=== PATIENT | male | born 1990 | race Caucasian/White ===

== ENCOUNTER 2021-07-24 10:49 | Outpatient (REF) | payer OTHER, SELFPAY ==
[2021-07-24 13:55] LABS: MANUAL DIFF FLAG NO
[2021-07-24 14:03] LABS: Basophils Percent Auto 0.5 % (0-2); Eosinophils Absolute Auto 0.1 X10*3/uL (0.0-0.4); Eosinophils Percent Auto 1.3 % (0-4); Hematocrit 42.1 % (42.0-52.0); Hemoglobin 14.3 g/dl (14.0-18.0); Imm Gran Abs Auto 0.02 X10*3/uL (0.00-0.03); Imm Gran Pct Auto 0.3 % (0.0-0.4); Lymphocytes Absolute Auto 2.5 X10*3/uL (1.2-4.9); Lymphocytes Percent Auto 39.9 % (20-40); Mean Corpuscular Hemoglobin 29.8 pg (27.0-33.0); Mean Corpuscular Volume 87.7 fL (80.0-98.0); Mean Platelet Volume 12.1 fL (9.4-12.4); Monocytes Absolute Auto 0.6 X10*3/uL (0.1-1.2); Monocytes Percent Auto 10.2 % (2-11); Neutrophils Percent Auto 47.8 % (45-73); Red Cell Distribution Width 12.1 % (11.0-16.0); White Blood Count 6.2 X10*3/uL (4.8-10.8)
[2021-07-24 14:22] LABS: Platelet Count 86 X10*3/uL (160-400)
[2021-07-24 14:42] LABS: Alanine Aminotransferase 76 U/L (0-40); Albumin Level 4.4 g/dL (3.5-5.0); Alkaline Phosphatase 35 U/L (39-117); Anion Gap 13 (12-20); Aspartate Amino Transferase 34 U/L (5-37); Bilirubin Total 0.4 mg/dL (0.0-1.0); Blood Urea Nitrogen 22 mg/dL (9-16); Calcium 9.7 mg/dL (8.4-10.2); Carbon Dioxide 24 mmol/L (22-29); Chloride 106 mmol/L (96-108); Cholesterol 218 mg/dL; Estimated Glomerular Filt Rate > 60; Glucose Fasting 85 mg/dL (60-99); HDL Cholesterol 39 mg/dL; LDL Cholesterol Calculated 123 mg/dl; Potassium 4.4 mmol/L (3.3-5.1); Sodium 139 mmol/L (135-145); Total Protein 7.2 g/dL (6.5-8.0); Triglycerides 282 mg/dL
[2021-07-24 14:56] LABS: Vitamin D 25-OH Total 22.8 ng/mL (>30)
== END 2021-07-24 10:50 | disposition home or self-care (01) ==
LOC: HO.MANLDS 10:49
PROVIDERS: PCP Internal Medicine; Visit Provider Internal Medicine
DX: Z00.00 Encounter for general adult medical examination without abnormal findings (principal)
CPT/HCPCS: 36415; 80053; 80061; 82306; 85025

== ENCOUNTER 2022-03-29 04:00 | Observation (INO) | payer OTHER, SELFPAY ==
--- NOTE | 2022-03-29 | ECG_ITS ---
Test Reason : LOW HR Blood Pressure : / mmHG Vent. Rate : 037 BPM Atrial Rate : 037 BPM P-R Int : 148 ms QRS Dur : 094 ms QT Int : 460 ms P-R-T Axes : -01 033 030 degrees QTc Int : 361 ms Marked sinus bradycardia Abnormal ECG No previous ECGs available Referred By: Generic ED Physician Electronically Signed By:ABBEY GOMES
--- NOTE | ~2022-03-29 | CT_ITS ---
EXAMINATION: CT ABDOMEN AND PELVIS WITHOUT CONTRAST CLINICAL INFORMATION: Sudden onset epigastric pain. COMPARISON: None TECHNIQUE: Multidetector volumetric imaging was performed from the superior aspect of the liver through the pubic symphysis. Sagittal and coronal reformatted images were obtained on the technologist's workstation. This CT examination was performed using dose optimization techniques as appropriate, variously including the following: *Automated exposure control *Adjustment of mA and/or kV according to patient size (this includes techniques or standardized protocols for targeted exams where dose is matched to indication/reason for exam; i.e. extremities or head) *Use of iterative reconstruction technique DLP: 860 mGy-cm FINDINGS: LUNG BASES: There is a pneumatocele within the right lower lobe, partially imaged. LIVER, GALLBLADDER, AND BILIARY TREE: Liver normal in size, contour and morphology. Diffuse hepatic steatosis. No focal liver lesions. No intra or extrahepatic biliary dilatation. Gallbladder unremarkable. PANCREAS: Unremarkable. SPLEEN: Unremarkable. ADRENAL GLANDS: Unremarkable. KIDNEYS AND URETERS: The kidneys are normal in size, shape, and attenuation. No hydronephrosis, hydroureter, or calculi seen. No perinephric stranding. BLADDER: Unremarkable. GASTROINTESTINAL TRACT: The appendix is dilated and fluid-filled measuring up to 1.1 cm in diameter with trace adjacent fat stranding. No evidence of perforation or abscess formation. Remainder of the gastrointestinal tract is unremarkable. ABDOMINAL WALL: No significant hernia is appreciated. LYMPH NODES: Normal. VASCULAR: Unremarkable. PELVIC VISCERA: Unremarkable. OSSEOUS STRUCTURES: Unremarkable. CT/CT abdomen pelvis wo con IMPRESSION: * Findings are most compatible with early, acute uncomplicated appendicitis. * No additional potentially acute findings within the abdomen or pelvis to explain the patient's symptomatology. * Hepatic steatosis.
[2022-03-29 04:09] VITALS: BP 130/78; PULSE 36; RESP 20; TEMP 35.8; O2SAT 98; BMI 33.6
--- NOTE | 2022-03-29 04:35 | ED_ITS ---
HPI - Abdominal Pain General Chief Complaint: Abdominal Pain Stated Complaint: abd pain, cp? Time Seen by Provider: 03/29/22 04:30 Source: patient and family (, Angi) Mode of arrival: ambulatory Limitations: no limitations History of Present Illness HPI narrative: 31-year-old male who presents emergency department for evaluation of abdominal. Patient states that he woke up from sleep at 02:00 hours with a sudden onset epigastric abdominal pain. States that the pain is a constant, sharp pain which was 7/10 at onset and is currently 8/10. The patient had associated nausea and 1 episode of vomiting. Patient felt lightheaded dizzy and according to his his skin was very clammy. Patient states that he does get gas pain but he has never had pain that is been this severe before. He denied chest pain. He states he does feel short of breath. He denied frequency, urgency or dysuria. He denied any dark tarry stools bloody stools. MD elicited complaint: abdominal pain Onset (ago): hour(s) (2) Pain Consistency: constant Location: epigastric Severity: severe Pain scale (0-10): 8 Quality: sharp Radiation: none Migration to: no migration Exacerbating factors: nothing Relieving factors: nothing Associated symptoms: nausea, vomiting, chills and other (Diaphoresis) Related Data Allergies Allergy/AdvReac Type Severity Reaction Status Date / Time No Known Allergies Allergy Verified 03/29/22 04:15 Review of Systems Review of Systems Yes all other systems are reviewed and are negative [facility] Past Medical History [facility] Narrative: Past will history: ADD. Past surgical history: None. Social history: He is , his Angi is here in the emergency department with him. He denies tobacco use. He states that he occasionally drinks alcohol but does not drink any alcohol recently. Denies drug use. Social History Social History Advance Directives: No Advance Directives Information Provided: Yes Physical Exam ED Vital Signs: Vital Signs - 24 hr 03/29/22 04:09 03/29/22 05:48 Temperature 96.5 F L Pulse Rate 36 L 37 L Respiratory Rate 20 15 Blood Pressure 130/78 133/85 Pulse Oximetry 98 94 Oxygen Delivery Method Room Air Room Air BMI result Body Mass Index 33.6 Const Other: Awake, alert, male patient, pale, diaphoretic, answers all questions appropriately HENMT Head: Yes normal to inspection, Yes normocephalic and Yes atraumatic Ears: external ears normal General nose exam: Normal external nose present Face and sinus: Yes normal facial exam Mouth: Normal oral and palatal mucosa present Throat: Yes posterior oropharynx normal Eyes General: appearance normal, both eyes and all related structures Pupils: Equal, round and reactive pupils present Neck Neck: Yes normal visual inspection, Yes no lymphadenopathy, Yes trachea midline and Yes supple Chest Chest palpation & inspection: normal inspection of the chest and normal palpation of entire chest wall Resp Effort & Inspection: normal respiratory effort and able to speak in complete sentences Auscultation: clear to auscultation bilaterally Cardio Rate: regular rate Rhythm: regular rhythm Heart sounds: S1 normal heart sound present, S2 normal heart sound present and no murmurs GI Inspection: Yes normal to inspection Palpation (GI): Soft to palpation, Tenderness to palpation present (GI) in the epigastrum (Moderate) and no guarding Auscultation: normal bowel sounds General: Yes no CVA tenderness Back/Spine/Pelvis Back: no CVA tenderness Skin General skin exam: no rashes or lesions noted Neuro Cranial nerves: Yes CN's II-XII intact bilaterally and Yes Equal, round and reactive pupils present Cognition (Neuro): normal cognition Motor exam (neuro): 5/5 motor strength present throughout Extrem General: Yes normal to inspection Psych Appearance: grossly normal Speech and movement: Normal speech and movement present Affect: normal affect Attitude: cooperative Thought process: Normal thought process present Thought content: Normal thought content present Course Course Course Narrative: 31-year-old male who presents emergency department for evaluation of sudden onset of epigastric abdominal pain at 02:00 hours, the pain was severe at onset and is currently 8/10. Physical examination revealed bradycardia with a pulse of 36, epigastric tenderness otherwise unremarkable. Differential includes was not limited to myocardial infarction, renal colic, biliary colic, perforation, pancreatitis. I ordered a CBC, CMP, PT/INR, PTT, lactate, lipase, troponin. EKG and CT scan of the abdomen pelvis without IV contrast was obtained. Patient was ordered to get normal saline IV x2 L , morphine 4 mg IV and Zofran 4 mg IV. 0604: The patient's laboratory evaluation did reveal elevated BUN of 27, elevated AST and ALT of 7837. Patient's troponin was below detectable limits. COVID-[address] scan of the abdomen pelvis with IV contrast is consistent with acute appendicitis. The patient did receive a dose of Toradol 30 mg IV and 2nd dose of morphine 4 mg IV with some improvement of his pain. Patient's bradycardia also improved with improvement of his pain, therefore I suspect that his bradycardia was caused by vagal nerve stimulation. I will contact the surgeon on-call discuss further management. 0620: I did discuss the patient's presentation over tiger text with the covering surgeon, Dr. Avila. The patient will be treated with Zosyn 4.5 g IV and the patient will be admitted to her service for further management of his acute appendicitis. The patient will be kept NPO. 0631: The patient does have a sinus bradycardia. He states that he has no difficulty exercising, I did add a TSH with reflex T4 to evaluated for possible hypo thyroidism as the cause was bradycardia. MDM - Abdominal Pain Medical Records Attestation: I reviewed the patient's medical records. Lab Data Attestation: I reviewed the patient's lab results. Result diagrams: 03/29/22 04:44 03/29/22 04:44 Labs: Lab Results 03/29/22 03/29/22 03/29/22 Range/Units 04:44 04:44 04:44 WBC 7.4 (4.8-10.8) X10*3/uL RBC 4.88 (4.60-5.80) X10*6/uL Hgb 14.2 (14.0-18.0) g/dl Hct 41.2 L (42.0-52.0) % MCV 84.4 (80.0-98.0) fL MCH 29.1 (27.0-33.0) pg MCHC 34.5 (31.0-36.0) g/dl RDW 12.3 (11.0-16.0) % Plt Count 180 D (160-400) X10*3/uL MPV 11.1 (9.4-12.4) fL Immature Gran % (Auto) 0.3 (0.0-0.4) % Neut % (Auto) 52.8 (45-73) % Lymph % (Auto) 34.4 (20-40) % [place] % (Auto) 11.0 (2-11) % Eos % (Auto) 1.1 (0-4) % Baso % (Auto) 0.4 (0-2) % Lymph # (Auto) 2.5 (1.2-4.9) X10*3/uL [place] # (Auto) 0.8 (0.1-1.2) X10*3/uL Eos # (Auto) 0.1 (0.0-0.4) X10*3/uL Baso # (Auto) 0.0 (0.0-0.2) X10*3/uL Abs Immat Gran (auto) 0.02 (0.00-0.03) X10*3/uL Absolute Neuts (auto) 3.9 (2.0-8.3) x10*3/uL Absolute Nucleated RBC 0.000 (0.0-0.012) X10*3/uL Nucleated RBC % (auto) 0.0 (0.0-0.2) /100WBC PT (10.0-13.1) SEC INR (0.9-1.1) APTT (26.0-36.4) SEC Sodium 139 (135-145) mmol/L Potassium 4.2 (3.3-5.1) mmol/L Chloride 105 (96-108) mmol/L Carbon Dioxide 25 (22-29) mmol/L Anion Gap 13 (12-20) BUN 27 H (9-16) mg/dL Creatinine 1.06 (0.5-1.4) mg/dL Estim Creat Clear Calc 134.5 Estimated GFR > 60 Random Glucose 124 H (60-115) mg/dL Lactic Acid (0.5-2.0) mmol/L Calcium 10.2 (8.4-10.2) mg/dL Total Bilirubin 0.4 (0.0-1.0) mg/dL AST 34 (5-37) U/L ALT 78 H (0-40) U/L Alkaline Phosphatase 37 L (39-117) U/L Troponin I High Sens < 3.5 (<3.5-35.0) ng/L Total Protein 7.6 (6.5-8.0) g/dL Albumin 4.8 (3.5-5.0) g/dL Lipase 24 (8-78) U/L COVID-19 (ULISES) (Negative) COVID-19 Clin Com 07/29/22 07/29/22 07/29/22 Range/Units 04:44 04:44 04:44 WBC (4.8-10.8) X10*3/uL RBC (4.60-5.80) X10*6/uL Hgb (14.0-18.0) g/dl Hct (42.0-52.0) % MCV (80.0-98.0) fL MCH (27.0-33.0) pg MCHC (31.0-36.0) g/dl RDW (11.0-16.0) % Plt Count (160-400) X10*3/uL MPV (9.4-12.4) fL Immature Gran % (Auto) (0.0-0.4) % Neut % (Auto) (45-73) % Lymph % (Auto) (20-40) % [place] % (Auto) (2-11) % Eos % (Auto) (0-4) % Baso % (Auto) (0-2) % Lymph # (Auto) (1.2-4.9) X10*3/uL [place] # (Auto) (0.1-1.2) X10*3/uL Eos # (Auto) (0.0-0.4) X10*3/uL Baso # (Auto) (0.0-0.2) X10*3/uL Abs Immat Gran (auto) (0.00-0.03) X10*3/uL Absolute Neuts (auto) (2.0-8.3) x10*3/uL Absolute Nucleated RBC (0.0-0.012) X10*3/uL Nucleated RBC % (auto) (0.0-0.2) /100WBC PT 11.9 (10.0-13.1) SEC INR 1.0 (0.9-1.1) APTT 31.1 (26.0-36.4) SEC Sodium (135-145) mmol/L Potassium (3.3-5.1) mmol/L Chloride (96-108) mmol/L Carbon Dioxide (22-29) mmol/L Anion Gap (12-20) BUN (9-16) mg/dL Creatinine (0.5-1.4) mg/dL Estim Creat Clear Calc Estimated GFR Random Glucose (60-115) mg/dL Lactic Acid 1.6 (0.5-2.0) mmol/L Calcium (8.4-10.2) mg/dL Total Bilirubin (0.0-1.0) mg/dL AST (5-37) U/L ALT (0-40) U/L Alkaline Phosphatase (39-117) U/L Troponin I High Sens (<3.5-35.0) ng/L Total Protein (6.5-8.0) g/dL Albumin (3.5-5.0) g/dL Lipase (8-78) U/L COVID-19 (ULISES) Negative (Negative) COVID-19 Clin Com See Note ECG Data Attestation: I personally reviewed and interpreted this ECG as follows: Interpretation: 0417: Sinus bradycardia with a rate of 37, normal DE interval, QRS duration QTC interval, no ST segment elevation, no ST segment depression, flattened T-wave in lead 3, no PACs, no PVCs except for the bradycardia this is a normal EKG. Discharge Plan Discharge Clinical Impression: Acute appendicitis, Bradycardia, sinus Patient Disposition: Admitted As Inpatient
[2022-03-29 04:48] LABS: Basophils Percent Auto 0.4 % (0-2); Eosinophils Absolute Auto 0.1 X10*3/uL (0.0-0.4); Eosinophils Percent Auto 1.1 % (0-4); Hematocrit 41.2 % (42.0-52.0); Hemoglobin 14.2 g/dl (14.0-18.0); Imm Gran Abs Auto 0.02 X10*3/uL (0.00-0.03); Imm Gran Pct Auto 0.3 % (0.0-0.4); Lymphocytes Absolute Auto 2.5 X10*3/uL (1.2-4.9); Lymphocytes Percent Auto 34.4 % (20-40); MANUAL DIFF FLAG NO; Mean Corpuscular HGB Conc 34.5 g/dl (31.0-36.0); Mean Corpuscular Hemoglobin 29.1 pg (27.0-33.0); Mean Corpuscular Volume 84.4 fL (80.0-98.0); Mean Platelet Volume 11.1 fL (9.4-12.4); Monocytes Absolute Auto 0.8 X10*3/uL (0.1-1.2); Neutrophils Absolute Auto 3.9 x10*3/uL (2.0-8.3); Neutrophils Percent Auto 52.8 % (45-73); Platelet Count 180 X10*3/uL (160-400); Red Blood Count 4.88 X10*6/uL (4.60-5.80); Red Cell Distribution Width 12.3 % (11.0-16.0); White Blood Count 7.4 X10*3/uL (4.8-10.8)
[2022-03-29] MEDS: Morphine Sulfate 4 MG/ML CARTRIDGE IVPUSH ×2 (04:49→06:13)
[2022-03-29] MEDS: ondansetron HCL 4 MG/2 ML VIAL IVPUSH (04:49)
[2022-03-29] MEDS: 0.9 % Sodium Chloride 1,000 ML 999 ML IV (04:49)
[2022-03-29 04:54] LABS: Prothrombin Time 11.9 SEC (10.0-13.1)
[2022-03-29 04:57] LABS: Partial Thromboplastin Time 31.1 SEC (26.0-36.4)
[2022-03-29 05:03] LABS: Lactic Acid 1.6 mmol/L (0.5-2.0)
[2022-03-29 05:08] LABS: COVID-19 Test Negative (Negative)
[2022-03-29 05:09] LABS: Alanine Aminotransferase 78 U/L (0-40); Albumin Level 4.8 g/dL (3.5-5.0); Alkaline Phosphatase 37 U/L (39-117); Anion Gap 13 (12-20); Aspartate Amino Transferase 34 U/L (5-37); Bilirubin Total 0.4 mg/dL (0.0-1.0); Blood Urea Nitrogen 27 mg/dL (9-16); Calcium 10.2 mg/dL (8.4-10.2); Carbon Dioxide 25 mmol/L (22-29); Chloride 105 mmol/L (96-108); Creatinine Clr Calc Pharmacy 134.5; Estimated Glomerular Filt Rate > 60; Glucose Random 124 mg/dL (60-115); Lipase 24 U/L (8-78); Potassium 4.2 mmol/L (3.3-5.1); Sodium 139 mmol/L (135-145); Total Protein 7.6 g/dL (6.5-8.0)
[2022-03-29 05:15] LABS: Troponin-I High Sensitivity < 3.5 ng/L (<3.5-35.0)
[2022-03-29] MEDS: Ketorolac Tromethamine 30 MG/ML VIAL IVPUSH ×3 (05:20→18:37)
[2022-03-29 05:48] VITALS: BP 133/85; PULSE 37; RESP 15; O2SAT 94
[2022-03-29 06:31] VITALS: BP 128/73; PULSE 45; RESP 18; O2SAT 98
[2022-03-29] MEDS: Piperacillin Sodium/Tazobactam 4.5 GM in 0.9 % Sodium Chloride 100 ML IV (06:37)
[2022-03-29] MEDS: Dextrose 5 % and 0.9 % NaCl 1,000 ML 100 ML IVCONT ×2 (07:00→17:40)
[2022-03-29 07:04] LABS: TSH reflex Free T4 1.89 uIU/mL (0.32-4.0)
--- NOTE | 2022-03-29 08:39 | P.HPGS_ITS ---
History of Present Illness History of Present Illness Date of Service: 04/01/22 Chief complaint: appendicitis Narrative: Cuco Fernández is a 31 year old male who says that he started to have left quadrant pain around 2 o'clock in the morning which is few hours ago. He describes this sharp. He said this was persistence who came to the emergency room He says he did have 1 episode of mild vomiting prior to coming in. He denies any diarrhea. Denies any fever or chills. The patient says that he does not have any right lower quadrant pain. Review of Systems Constitutional: Constitutional: Denies chills and Denies fever(s) Cardiovascular: Cardiovascular: Denies chest pain, Denies dyspnea and Denies dyspnea on exertion Respiratory: Respiratory: Denies cough, Denies dyspnea and Denies dyspnea on exertion Gastrointestinal: Gastrointestinal: Denies hematochezia and Denies change in bowel habits Genitourinary: Genitourinary: Denies hematuria and Denies difficulty urinating Musculoskeletal: Musculoskeletal: Denies back pain and Denies limited range of motion Neurologic: Denies focal weakness and Denies convulsions Psychiatric: Psychiatric: Denies depression and Denies mood swings PMFSH Past Medical History Medical History (Updated 03/30/22 @ 08:42 by Alistair Purcell MD) ADD (attention deficit disorder) Left upper quadrant pain Social History Social History (Updated 03/29/22 @ 16:59 by YOU [place]) Alcohol intake: current Alcohol intake frequency: holidays/special occasions only Patient Tobacco Use Status: Never used Tobacco service: No Current occupational status: employed Meds Allergies Allergy/AdvReac Type Severity Reaction Status Date / Time No Known Allergies Allergy Verified 03/29/22 04:15 Active Medications: Current Medications Dextrose/Sodium Chloride (D5ns) 1,000 mls @ 100 mls/hr IVCONT .Q10H REPLACED BY [facility] Last Admin: 03/29/22 07:00 Dose: 100 mls/hr Ketorolac Tromethamine (Ketorolac Tromethamine 30 Mg/Ml Vial) 30 mg IVPUSH Q6H PRN PRN Reason: Pain, Mild (Pain Scale 1-3) Stop: 04/03/22 06:30 Sodium Chloride (0.9 % Sodium Chloride Flush 3 Ml Syringe) 3 ml IVFLUSH QSHIFT REPLACED BY [facility] Home Medications Medication Instructions Recorded Confirmed Last Taken Type dextroamphetamine-amphetamine ER 1 cap PO DAILY 03/29/22 03/29/22 03/28/22 History 25 mg 24hr capsule,extend release ibuprofen 200 mg tablet 400 mg PO Q6H PRN Pain 03/29/22 03/29/22 03/28/22 History Physical Exam Vital Signs: Vital Signs: Last Vital Signs Temp 96.5 F L 03/29/22 04:09 Pulse 45 L 03/29/22 06:31 Resp 18 03/29/22 06:31 BP 128/73 03/29/22 06:31 Pulse Ox 98 03/29/22 06:31 O2 Del Method 03/29/22 06:31 BMI result Body Mass Index 33.6 Const: General: comfortable and no acute distress Orientation/consciousness: patient oriented x3 Neck: Neck: Yes no lymphadenopathy Resp: Auscultation: clear to auscultation bilaterally Cardio: Rhythm: regular rhythm GI: Other: Tender on the left upper quadrant under the ribcage, no guarding or rebound, no tenderness at all on the right lower quadrant Palpation (GI): Soft to palpation, nontender and no guarding Neuro: General: patient oriented x3 Results Results Labs: Short CBC 03/29/22 Range/Units 04:44 WBC 7.4 (4.8-10.8) X10*3/uL Hgb 14.2 (14.0-18.0) g/dl Hct 41.2 L (42.0-52.0) % Plt Count 180 D (160-400) X10*3/uL BMP 03/29/22 04:44 Sodium 139 Potassium 4.2 Chloride 105 Carbon Dioxide 25 BUN 27 H Creatinine 1.06 Calcium 10.2 Liver Function 03/29/22 Range/Units 04:44 Total Bilirubin 0.4 (0.0-1.0) mg/dL AST 34 (5-37) U/L ALT 78 H (0-40) U/L Alkaline Phosphatase 37 L (39-117) U/L Albumin 4.8 (3.5-5.0) g/dL Assessment and Plan (1) Left upper quadrant pain: Status: Acute The patient's history as well as examination points to pain and tenderness on the left upper quadrant. He does not have any tenderness nor pain on the right lower quadrant at all. I have reviewed his CAT scan with the radiologist. Th ere may be some thickening of the appendix but there are no significant inflammatory changes. His official CT reposrt does state possible early or mild acute appendicitis. He does not have any leukocytosis. Overall clinical findings do not suggest acute appendicitis at this time. I will therefore hold off on appendix to me at for now. I will do serial abdominal exam. I explained the above to the patient. He has a very benign exam as well. I did explain to the patient that we will follow closely with exams. I told him and his family that in view of the CT report, acute appendicitis ins not completely ruled out . If he does start showing signs c/w acute appendicitis, then we may still need to proceed with appendectomy. (2) Bradycardia, sinus: Status: Acute He denies being athletic but his heart rates in the 40s and low 50s . Blood pressure is stable. He seems to be asymptomatic. I will consult the hospitalist for this. Quality Stroke Does the patient have a stroke diagnosis?: No VTE Prior VTE?: No VTE Risk Level:: Surgical - low VTE Device Contraindication: N/A - Device Ordered VTE Drug Contraindication: Treatment Not Indicated Procedures Date of Service Date of Service: 03/29/22
--- NOTE | 2022-03-29 09:58 | MHC.CM.PN ---
Met with patient and , Angi in regards to discharge planning. Patient lives with , ambulates independently and had no services prior to coming to the hospital. No services anticipated to be needed because patient is not homebound. PCP verified as Dr Martin. HCP completed, signed and witnessed. Original given to patient. Copy placed in chart. Patient received 3 Moderna vaccines. Patient's will transport patient home when medically stable. Continue to monitor for d/c needs.
--- NOTE | 2022-03-29 10:10 | PHA.MEDREC ---
Pharmacy Consult ? Medication Reconciliation Pharmacy has completed the medication reconciliation. Patient confirmed all medications. Mona Luna, RoseyD
[2022-03-29] MEDS: 0.9 % Sodium Chloride Flush 3 ML SYRINGE IVFLUSH (10:25)
--- NOTE | 2022-03-29 10:33 | PC.NURSE ---
alert. speech clear, skin wpd, states pain is increasing to 4/10, steady gait to bathroom ua sent, states l abd pain and started to hurt on rlq after ambulating, aware npo
[2022-03-29 10:38] LABS: Appearance Urine CLOUDY; Color Urine YELLOW; Glucose Urine UA NEG (NEG); Leukocyte Esterase Urine NEG (NEG); Nitrite Urine NEG (NEG); PH 5.5 (5.0-8.0); Specific Gravity - Urine >= 1.030 (1.005-1.025); Urine Blood NEG (NEG); Urine Ketones NEG (NEG); Urine Protein NEG (NEG-TRACE)
[2022-03-29 13:58] VITALS: BP 124/77; PULSE 45; RESP 19; O2SAT 98
--- NOTE | 2022-03-29 15:32 | PM.EVENT ---
Event Note Date of Service: 03/29/22 Event Note: Seen on afternoon rounds Asking if he can go home Stable vital signs except for sinus bradycardia Abdomen soft, benign, no guarding rebound Does not seem to be significantly tender in the right lower quadrant Continue observation Repeat labs tomorrow Hospitalist consulted for sinus bradycardia
--- NOTE | 2022-03-29 16:52 | P.CONIM_ITS ---
History of Present Illness Data of Consult Service Date: 03/29/22 Requesting physician: Alistair Purcell Primary Care Provider: Unknown Physician HPI Reason for consult: bradycardia This is a 31-year-old male with history of ADD who presented to the emergency department initially with abdominal pain. CT scan done in the emergency department showed findings most compatible with early appendicitis. He was admitted to the surgical service for further management. Thus far he has been treated conservatively and there are no plans for surgical intervention at this time. He was incidentally noted to have bradycardia with a heart rate in the 40s. EKG obtained showed sinus bradycardia. The hospitalists were asked to see him in consultation for this reason. The patient denies any dizziness, shortness of breath, chest pain. At the time of my evaluation heart rate had improved to the 60s. Patient denies any known history of bradycardia, he is not on any medication that can cause bradycardia. Review of Systems Review of Systems: Yes all other systems are reviewed and are negative Constitutional: Constitutional: Denies chills and Denies fever(s) ENT: Denies dizziness Cardiovascular: Cardiovascular: Denies chest pain, Denies palpitations, Denies dyspnea on exertion and Denies orthopnea Respiratory: Respiratory: Denies dyspnea on exertion Gastrointestinal: Gastrointestinal: Reports abdominal pain and Denies diarrhea Neurologic: Denies dizziness Endocrine: Endocrine: Denies palpitations [facility] Medical History (Updated 03/29/22 @ 16:58 by YOU [place]) ADD (attention deficit disorder) Left upper quadrant pain Pertinent family history: Patient denies history of stroke, heart disease, diabetes in first-degree relatives. He reports that his mom has a history of asthma. Social History (Updated 03/29/22 @ 16:59 by YOU [place]) Alcohol intake: current Alcohol intake frequency: holidays/special occasions only Patient Tobacco Use Status: Never used Tobacco Use of substances other than those prescribed or required for medical reasons: No Advance Directives: No Advance Directives Information Provided: Yes service: No Current occupational status: employed Meds Allergies Allergy/AdvReac Type Severity Reaction Status Date / Time No Known Allergies Allergy Verified 03/29/22 04:15 Active Medications: Current Medications Dextrose/Sodium Chloride (D5ns) 1,000 mls @ 100 mls/hr IVCONT .Q10H [facility] Last Admin: 03/29/22 07:00 Dose: 100 mls/hr Ketorolac Tromethamine (Ketorolac Tromethamine 30 Mg/Ml Vial) 30 mg IVPUSH Q6H PRN PRN Reason: Pain, Mild (Pain Scale 1-3) Stop: 04/03/22 06:30 Last Admin: 03/29/22 10:45 Dose: 30 mg Sodium Chloride (0.9 % Sodium Chloride Flush 3 Ml Syringe) 3 ml IVFLUSH QSHIFT [facility] Last Admin: 03/29/22 10:25 Dose: 3 ml Home Medications Medication Instructions Recorded Confirmed Last Taken Type dextroamphetamine-amphetamine ER 1 cap PO DAILY 03/29/22 03/29/22 03/28/22 History 25 mg 24hr capsule,extend release ibuprofen 200 mg tablet 400 mg PO Q6H PRN Pain 03/29/22 03/29/22 03/28/22 History Physical Exam Vital Signs and Narrative: Vital Signs: Last Vital Signs Temp 96.5 F L 03/29/22 04:09 Pulse 45 L 03/29/22 13:58 Resp 19 03/29/22 13:58 BP 124/77 03/29/22 13:58 Pulse Ox 98 03/29/22 13:58 O2 Del Method 03/29/22 13:58 BMI result Body Mass Index 33.6 Const: General: cooperative, comfortable, alert and awake Nutritional Appearance: overweight Orientation/consciousness: patient oriented x3 Eyes: Pupils: Equal, round and reactive pupils present Resp: Effort & Inspection: normal respiratory effort and able to speak in complete sentences Auscultation: clear to auscultation bilaterally Cardio: Rate: regular rate Rhythm: regular rhythm Heart sounds: S1 normal heart sound present and S2 normal heart sound present GI: Inspection: No distended Palpation (GI): Soft to palpation Neuro: General: patient oriented x3 and CN's II-XI intact bilaterally Cranial nerves: Yes Equal, round and reactive pupils present Extrem: General: Yes no pedal edema Results Labs CBC and Chem 7: 03/29/22 04:44 03/29/22 04:44 Labs: Laboratory Results - last 24 hr 03/29/22 03/29/22 03/29/22 04:44 04:44 04:44 MCV 84.4 MCH 29.1 MCHC 34.5 RDW 12.3 Plt Count 180 D MPV 11.1 Immature Gran % (Auto) 0.3 Neut % (Auto) 52.8 Lymph % (Auto) 34.4 [place] % (Auto) 11.0 Eos % (Auto) 1.1 Baso % (Auto) 0.4 Lymph # (Auto) 2.5 [place] # (Auto) 0.8 Eos # (Auto) 0.1 Baso # (Auto) 0.0 Abs Immat Gran (auto) 0.02 Absolute Neuts (auto) 3.9 Absolute Nucleated RBC 0.000 Nucleated RBC % (auto) 0.0 PT INR APTT Anion Gap 13 Estim Creat Clear Calc 134.5 Estimated GFR > 60 Random Glucose 124 H Lactic Acid Calcium 10.2 Total Bilirubin 0.4 AST 34 ALT 78 H Alkaline Phosphatase 37 L Total Protein 7.6 Albumin 4.8 Lipase 24 TSH 1.89 Urine Color Urine Appearance Urine pH Ur Specific [place] Urine Protein Urine Glucose (UA) Urine Ketones Urine Blood Urine Nitrite Ur Leukocyte Esterase COVID-19 (ULISES) Negative COVID-19 Clin Com See Note 03/29/22 03/29/22 03/29/22 04:44 04:44 10:26 MCV MCH MCHC RDW Plt Count MPV Immature Gran % (Auto) Neut % (Auto) Lymph % (Auto) [place] % (Auto) Eos % (Auto) Baso % (Auto) Lymph # (Auto) [place] # (Auto) Eos # (Auto) Baso # (Auto) Abs Immat Gran (auto) Absolute Neuts (auto) Absolute Nucleated RBC Nucleated RBC % (auto) PT 11.9 INR 1.0 APTT 31.1 Anion Gap Estim Creat Clear Calc Estimated GFR Random Glucose Lactic Acid 1.6 Calcium Total Bilirubin AST ALT Alkaline Phosphatase Total Protein Albumin Lipase TSH Urine Color YELLOW Urine Appearance CLOUDY Urine pH 5.5 Ur Specific [place] >= 1.030 H Urine Protein NEG Urine Glucose (UA) NEG Urine Ketones NEG Urine Blood NEG Urine Nitrite NEG Ur Leukocyte Esterase NEG COVID-19 (ULISES) COVID-19 Clin Com Imaging Radiologist's Impressions: Impressions Abdomen/Pelvis CT 03/29/22 05:06 IMPRESSION: * Findings are most compatible with early, acute uncomplicated appendicitis. * No additional potentially acute findings within the abdomen or pelvis to explain the patient's symptomatology. * Hepatic steatosis. Assessment and Plan (1) Bradycardia, sinus: Status: Acute Plan This is a 31-year-old male with history of ADD who presented to the emergency department with abdominal pain found to have CT scan concerning for early appendicitis incidentally noted to have bradycardia Sinus bradycardia HR initially in high 30s, 40s Asymptomatic Thyroid function within normal limits Heart rate seems to be improved, currently in the 60s -monitor overnight on tele Transaminitis LFTs mildly elevated likely r/t hepatic steatosis/fatty liver appears chronic outpatient follow up Abdominal pain Management per surgical team Attending - Dr. Hudson Thank you for allowing us to participate in the care of this patient. We will follow along with you.
[2022-03-29 19:46] VITALS: BP 126/74; PULSE 69; RESP 20; O2SAT 97
[2022-03-30] MEDS: Dextrose 5 % and 0.9 % NaCl 1,000 ML 100 ML IVCONT (05:10)
[2022-03-30] MEDS: 0.9 % Sodium Chloride Flush 3 ML SYRINGE IVFLUSH (05:10)
[2022-03-30 05:14] VITALS: BP 123/65; PULSE 55; RESP 16; TEMP 36.4; O2SAT 97
[2022-03-30 07:02] LABS: Hematocrit 36.3 % (42.0-52.0); Hemoglobin 12.2 g/dl (14.0-18.0); Mean Corpuscular HGB Conc 33.6 g/dl (31.0-36.0); Mean Corpuscular Hemoglobin 29.2 pg (27.0-33.0); Mean Corpuscular Volume 86.8 fL (80.0-98.0); Mean Platelet Volume 11.4 fL (9.4-12.4); PLT CLUMP 1; Red Blood Count 4.18 X10*6/uL (4.60-5.80); Red Cell Distribution Width 12.5 % (11.0-16.0)
[2022-03-30 07:21] LABS: Anion Gap 12 (12-20); Blood Urea Nitrogen 19 mg/dL (9-16); Calcium 8.4 mg/dL (8.4-10.2); Carbon Dioxide 22 mmol/L (22-29); Chloride 110 mmol/L (96-108); Creatinine Clr Calc Pharmacy 160.2; Estimated Glomerular Filt Rate > 60; Glucose Random 107 mg/dL (60-115); Potassium 4.1 mmol/L (3.3-5.1); Sodium 140 mmol/L (135-145)
[2022-03-30 07:22] LABS: White Blood Count 5.7 X10*3/uL (4.8-10.8)
[2022-03-30 07:56] VITALS: BP 119/79; PULSE 88; RESP 16; TEMP 36.4; O2SAT 97
--- NOTE | 2022-03-30 08:41 | PM.PNGS ---
Subjective Subjective Date of Service: 04/09/22 Interval history: denies abdl pain says he feels well hungry, wants to eat Physical Exam Vital Signs: Vital Signs: Last Vital Signs Temp 97.6 F 03/30/22 07:56 Pulse 88 03/30/22 07:56 Resp 16 03/30/22 07:56 BP 119/79 03/30/22 07:56 Pulse Ox 97 03/30/22 07:56 O2 Del Method 03/30/22 07:56 BMI result Body Mass Index 33.6 Const: General: comfortable and no acute distress Orientation/consciousness: patient oriented x3 Neck: Neck: Yes no lymphadenopathy Resp: Auscultation: clear to auscultation bilaterally Cardio: Rhythm: regular rhythm GI: Palpation (GI): Soft to palpation, nontender and no guarding Neuro: General: patient oriented x3 Objective Data Active Medications Dextrose/Sodium Chloride (D5ns) 1,000 mls @ 100 mls/hr IVCONT .Q10H [facility] Last Admin: 03/30/22 05:10 Dose: 100 mls/hr Documented By: NAZ Ketorolac Tromethamine (Ketorolac Tromethamine 30 Mg/Ml Vial) 30 mg IVPUSH Q6H PRN PRN Reason: Pain, Mild (Pain Scale 1-3) Stop: 04/03/22 06:30 Last Admin: 03/29/22 18:37 Dose: 30 mg Documented By: LAZARA Sodium Chloride (0.9 % Sodium Chloride Flush 3 Ml Syringe) 3 ml IVFLUSH QSHIFT [facility] Last Admin: 03/30/22 05:10 Dose: 3 ml Documented By: NAZ Labs CBC & Chem 7: 03/30/22 06:42 03/30/22 06:42 Labs: Laboratory Results - last 24 hr 03/29/22 03/30/22 03/30/22 10:26 06:42 06:42 MCV 86.8 MCH 29.2 MCHC 33.6 RDW 12.5 Plt Count TNP MPV 11.4 Absolute Nucleated RBC 0.000 Nucleated RBC % (auto) 0.0 Anion Gap 12 Estim Creat Clear Calc 160.2 Estimated GFR > 60 Random Glucose 107 Calcium 8.4 D Urine Color YELLOW Urine Appearance CLOUDY Urine pH 5.5 Ur Specific [place] >= 1.030 H Urine Protein NEG Urine Glucose (UA) NEG Urine Ketones NEG Urine Blood NEG Urine Nitrite NEG Ur Leukocyte Esterase NEG Procedures Date of Service Date of Service: 03/30/22 Progress Note: A&P Assessment and plan (1) Left upper quadrant pain: Status: Resolved Assessment and Plan: feels well no abdl pain no tenderness looks well WBC normal diet as tolerated dc home once tolerating diet etiol of LUQ yesterday uncertain - musculoskeletal? constipation/gas? HR now normal - appreciate Hospitalist input Time Spent With Patient Time: Total time spent is greater than 50% in coordination of care (as documented) at patient's floor/unit and/or counseling patient: Quality Stroke Does the patient have a stroke diagnosis?: No VTE Prior VTE?: No VTE Risk Level:: Surgical - low VTE Device Contraindication: N/A - Device Ordered VTE Drug Contraindication: Treatment Not Indicated
--- NOTE | 2022-03-30 09:25 | P.PNIM_ITS ---
Subjective Subjective Date of Service: 03/30/22 Interval History: Seen and examined this morning Follow-up for bradycardia Heart rate has improved, asymptomatic Review of Systems Review of Systems: Yes all other systems are reviewed and are negative Constitutional Constitutional: Denies chills and Denies fever(s) Cardiovascular Cardiovascular: Denies chest pain, Denies palpitations and Denies dyspnea Respiratory Respiratory: Denies cough and Denies dyspnea Gastrointestinal Gastrointestinal: Denies nausea and Denies vomiting Endocrine Endocrine: Denies palpitations Physical Exam Vital Signs: Vital Signs: Last Vital Signs Temp 97.6 F 03/30/22 07:56 Pulse 88 03/30/22 07:56 Resp 16 03/30/22 07:56 BP 119/79 03/30/22 07:56 Pulse Ox 97 03/30/22 07:56 O2 Del Method 03/30/22 07:56 BMI result Body Mass Index 33.6 Const: General: cooperative, comfortable, alert and awake Nutritional Appearance: overweight Orientation/consciousness: patient oriented x3 Resp: Effort & Inspection: normal respiratory effort and able to speak in complete sentences Auscultation: clear to auscultation bilaterally Cardio: Rate: regular rate Rhythm: regular rhythm Heart sounds: S1 normal heart sound present and S2 normal heart sound present GI: Inspection: No distended Palpation (GI): Soft to palpation Neuro: General: patient oriented x3 and CN's II-XI intact bilaterally Extrem: General: Yes no pedal edema Objective Data Active Medications Dextrose/Sodium Chloride (D5ns) 1,000 mls @ 100 mls/hr IVCONT .Q10H [facility] Last Admin: 03/30/22 05:10 Dose: 100 mls/hr Documented By: NAZ Ketorolac Tromethamine (Ketorolac Tromethamine 30 Mg/Ml Vial) 30 mg IVPUSH Q6H PRN PRN Reason: Pain, Mild (Pain Scale 1-3) Stop: 04/03/22 06:30 Last Admin: 03/29/22 18:37 Dose: 30 mg Documented By: LAZARA Sodium Chloride (0.9 % Sodium Chloride Flush 3 Ml Syringe) 3 ml IVFLUSH QSHIFT [facility] Last Admin: 03/30/22 05:10 Dose: 3 ml Documented By: NAZ Labs CBC & Chem 7: 03/30/22 06:42 03/30/22 06:42 Labs: Laboratory Results - last 24 hr 03/29/22 03/30/22 03/30/22 10:26 06:42 06:42 MCV 86.8 MCH 29.2 MCHC 33.6 RDW 12.5 Plt Count TNP MPV 11.4 Absolute Nucleated RBC 0.000 Nucleated RBC % (auto) 0.0 Anion Gap 12 Estim Creat Clear Calc 160.2 Estimated GFR > 60 Random Glucose 107 Calcium 8.4 D Urine Color YELLOW Urine Appearance CLOUDY Urine pH 5.5 Ur Specific [place] >= 1.030 H Urine Protein NEG Urine Glucose (UA) NEG Urine Ketones NEG Urine Blood NEG Urine Nitrite NEG Ur Leukocyte Esterase NEG Assessment and Plan (1) Bradycardia, sinus: Status: Acute Plan This is a 31-year-old male with history of ADD who presented to the emergency department with abdominal pain found to have CT scan concerning for early appendicitis incidentally noted to have bradycardia Sinus bradycardia HR initially in high 30s, 40s. He has remained asymptomatic Thyroid function within normal limits Heart has gradually improved overnight currently in the 60s No further workup at this time Recommend outpatient follow up with PCP Transaminitis LFTs mildly elevated likely r/t hepatic steatosis/fatty liver appears chronic outpatient follow up Abdominal pain Management per surgical team Attending - Dr. Cee Thank you for allowing us to participate in the care of this patient. We will sign off at this time. Quality Stroke Does the patient have a stroke diagnosis?: No VTE Prior VTE?: No VTE Risk Level:: Surgical - low VTE Device Contraindication: N/A - Device Ordered VTE Drug Contraindication: Treatment Not Indicated
[2022-03-30 11:39] VITALS: BP 125/60; PULSE 88; RESP 16; TEMP 36.5; O2SAT 96
--- NOTE | 2022-03-30 12:50 | MHC.CM.PN ---
PT MEDICALLY CLEARED FOR D/C HOME NO SERVICES W/ FOR TRANSPORT
--- NOTE | 2022-04-02 16:01 | PM.DS ---
DS: Providers Provider Date of Service: 03/30/22 Date of admission: 03/29/22 06:32 Primary care physician: Vince Martin MD Consults: 03/29/22 15:30 Consult to Hospitalist Routine Consulting Provider: Hospitalist Reason For Exam: bradycardia DS: Diagnosis Discharge Diagnosis (1) Left upper quadrant pain: Status: Acute (2) Bradycardia, sinus: Status: Acute DS: Summary Hospital Course Hospital Course: 31-year-old male admitted on the early childhood services coordinator of 03/29/2022 because of abdominal pain. He had a CAT scan showing some mild thickening of the appendix that may be secondary to early or mild acute appendicitis. However, on examination, his pain was on the left upper quadrant. He does have any significant pain or tenderness on the right lower quadrant. He did not have any leukocytosis. Because of this CAT scan finding, he was admitted for observation. He remained afebrile. He is exam remained benign and he never had any significant pain or tenderness. Follow-up CBC did reveal any leukocytosis. He was added on regular food which he tolerated well. He does therefore discharged with resolution of the pain on 03/30/2022. Clinically he did not have acute appendicitis. Differentials would include musculoskeletal pain, constipation or gastroenteritis. Time Spent with Patient Time attestation: Total time spent providing and/or coordinating discharge services: Discharge coordination time: Less than 30 minutes Quality: Safe Use of Opioids Does Pt have an Active Cancer Diagnosis on the Problem List?: No Quality: Stroke Does the patient have a stroke diagnosis?: No Physical Exam Vital Signs: Vital Signs: Last Vital Signs Temp 97.7 F 03/30/22 11:39 Pulse 88 03/30/22 11:39 Resp 16 03/30/22 11:39 BP 125/60 03/30/22 11:39 Pulse Ox 96 03/30/22 11:39 O2 Del Method 03/30/22 11:39 BMI result Body Mass Index 33.6 Const: General: comfortable and no acute distress Orientation/consciousness: patient oriented x3 Neck: Neck: Yes no lymphadenopathy Resp: Auscultation: clear to auscultation bilaterally Cardio: Rhythm: regular rhythm GI: Palpation (GI): Soft to palpation, nontender and no guarding Neuro: General: patient oriented x3 DS: Data Data Completed and Pending Labs on day of discharge: Laboratory Results WBC 5.7 X10*3/uL (4.8-10.8) 03/30/22 06:42 RBC 4.18 X10*6/uL (4.60-5.80) L 03/30/22 06:42 Hgb 12.2 g/dl (14.0-18.0) L 03/30/22 06:42 Hct 36.3 % (42.0-52.0) L 03/30/22 06:42 MCV 86.8 fL (80.0-98.0) 03/30/22 06:42 MCH 29.2 pg (27.0-33.0) 03/30/22 06:42 MCHC 33.6 g/dl (31.0-36.0) 03/30/22 06:42 RDW 12.5 % (11.0-16.0) 03/30/22 06:42 Plt Count TNP 03/30/22 06:42 MPV 11.4 fL (9.4-12.4) 03/30/22 06:42 Immature Gran % (Auto) 0.3 % (0.0-0.4) 03/29/22 04:44 Neut % (Auto) 52.8 % (45-73) 03/29/22 04:44 Lymph % (Auto) 34.4 % (20-40) 03/29/22 04:44 [place] % (Auto) 11.0 % (2-11) 03/29/22 04:44 Eos % (Auto) 1.1 % (0-4) 03/29/22 04:44 Baso % (Auto) 0.4 % (0-2) 03/29/22 04:44 Lymph # (Auto) 2.5 X10*3/uL (1.2-4.9) 03/29/22 04:44 [place] # (Auto) 0.8 X10*3/uL (0.1-1.2) 03/29/22 04:44 Eos # (Auto) 0.1 X10*3/uL (0.0-0.4) 03/29/22 04:44 Baso # (Auto) 0.0 X10*3/uL (0.0-0.2) 03/29/22 04:44 Abs Immat Gran (auto) 0.02 X10*3/uL (0.00-0.03) 03/29/22 04:44 Absolute Neuts (auto) 3.9 x10*3/uL (2.0-8.3) 03/29/22 04:44 Absolute Nucleated RBC 0.000 X10*3/uL (0.0-0.012) 03/30/22 06:42 Nucleated RBC % (auto) 0.0 /100WBC (0.0-0.2) 03/30/22 06:42 PT 11.9 SEC (10.0-13.1) 03/29/22 04:44 INR 1.0 (0.9-1.1) 03/29/22 04:44 APTT 31.1 SEC (26.0-36.4) 03/29/22 04:44 Sodium 140 mmol/L (135-145) 03/30/22 06:42 Potassium 4.1 mmol/L (3.3-5.1) 03/30/22 06:42 Chloride 110 mmol/L (96-108) H 03/30/22 06:42 Carbon Dioxide 22 mmol/L (22-29) 03/30/22 06:42 Anion Gap 12 (12-20) 03/30/22 06:42 BUN 19 mg/dL (9-16) H 03/30/22 06:42 Creatinine 0.89 mg/dL (0.5-1.4) 03/30/22 06:42 Estim Creat Clear Calc 160.2 03/30/22 06:42 Estimated GFR > 60 03/30/22 06:42 Random Glucose 107 mg/dL (60-115) 03/30/22 06:42 Lactic Acid 1.6 mmol/L (0.5-2.0) 03/29/22 04:44 Calcium 8.4 mg/dL (8.4-10.2) D 03/30/22 06:42 Total Bilirubin 0.4 mg/dL (0.0-1.0) 03/29/22 04:44 AST 34 U/L (5-37) 03/29/22 04:44 ALT 78 U/L (0-40) H 03/29/22 04:44 Alkaline Phosphatase 37 U/L (39-117) L 03/29/22 04:44 Troponin I High Sens < 3.5 ng/L (<3.5-35.0) 03/29/22 04:44 Total Protein 7.6 g/dL (6.5-8.0) 03/29/22 04:44 Albumin 4.8 g/dL (3.5-5.0) 03/29/22 04:44 Lipase 24 U/L (8-78) 03/29/22 04:44 TSH 1.89 uIU/mL (0.32-4.0) 03/29/22 04:44 Urine Color YELLOW 03/29/22 10:26 Urine Appearance CLOUDY 03/29/22 10:26 Urine pH 5.5 (5.0-8.0) 03/29/22 10:26 Ur Specific [place] >= 1.030 (1.005-1.025) H 03/29/22 10:26 Urine Protein NEG MG/DL (NEG-TRACE) 03/29/22 10:26 Urine Glucose (UA) NEG MG/DL (NEG) 03/29/22 10:26 Urine Ketones NEG MG/DL (NEG) 03/29/22 10:26 Urine Blood NEG (NEG) 03/29/22 10:26 Urine Nitrite NEG (NEG) 03/29/22 10:26 Ur Leukocyte Esterase NEG (NEG) 03/29/22 10:26 COVID-19 (ULISES) Negative (Negative) 03/29/22 04:44 COVID-19 Clin Com See Note 03/29/22 04:44 Impressions Abdomen/Pelvis CT 03/29/22 05:06 IMPRESSION: * Findings are most compatible with early, acute uncomplicated appendicitis. * No additional potentially acute findings within the abdomen or pelvis to explain the patient's symptomatology. * Hepatic steatosis. Discharge Plan Discharge Patient Disposition: Home, Self-Care Discharge Diagnosis: abdominal pain Referrals: Physician,Unknown J [Physician] - 1 Week Discharge Medications: Continued ibuprofen 200 mg Tablet 400 mg PO Q6H PRN (Reason: Pain) dextroamphetamine-amphetamine 25 mg capsule,extended release 24hr 1 cap PO DAILY Discharge Orders: Discharge Order (Routine); Ordered 03/30/22 Ordered By: Alistair Purcell Activity on Discharge: As tolerated Stand Alone Forms: Patient Portal Discharge page Care Plan Goals: continue health maintenance Health Concerns: high BMI low heart rate Plan of Treatment: ffup with PCP Assessment: doing well Discharge Date/Time: 03/30/22 13:16
== END 2022-03-30 13:16 | disposition home or self-care (01) ==
LOC: HO.ED 06:23 → HO.S3 07:25 → HO.EDOVER 08:41 → HO.S3 14:13 → HO.EDOVER 17:19 → HO.S3 03-30 04:24
PROVIDERS: Surgery; Admitting Provider Surgery; Emergency Provider Emergency Medicine Emergency Medical Services; PCP Internal Medicine; Visit Provider Surgery
DX: K35.80 Unspecified acute appendicitis (principal); R10.12 Left upper quadrant pain; R00.1 Bradycardia, unspecified; R07.89 Other chest pain; R10.13 Epigastric pain; R61 Generalized hyperhidrosis; Z20.822 Contact with and (suspected) exposure to COVID-19; Z79.899 Other long term (current) drug therapy
CPT/HCPCS: 36415; 74176; 80048; 80053; 81003; 83605; 83690; 84443; 84484; 85025; 85027; 85610; 85730; 87635; 93005; 96365; 96366; 96367; 96375; 96376; 99218; 99285; J1885; J2270; J2405; J2543